=== PATIENT | female | born 1980 | race Caucasian/White ===

== ENCOUNTER 2017-02-06 18:36 | Observation (INO) | payer MEDICAID ==
[~2017-02-06] VITALS: Ht 150 cm; Wt 69.9 kg
[2017-02-06] MEDS ORDERED: PREN-88 PO (18:50)
[2017-02-06] MEDS ORDERED: MAGN400C PO (18:50)
[2017-02-06] MEDS ORDERED: CHOL500010 PO (18:50)
== END 2017-02-06 20:20 | disposition home or self-care (01) ==
LOC: L&D 18:36
PROVIDERS: ADMIT Obstetrics & Gynecology; ATTEND Obstetrics & Gynecology
DX: O24.419 Gestational diabetes mellitus in pregnancy, unspecified control (principal); Z3A.34 34 weeks gestation of pregnancy
CPT/HCPCS: 59025; 76815; 76818; G0378

== ENCOUNTER 2021-03-10 12:46 | Emergency (ER) | payer MEDICAID ==
[~2021-03-10] VITALS: Ht 154.9 cm; Wt 73.0 kg
[~2021-03-10 12:46] MED LIST: CHOL500010 PO; MAGN400C PO; PREN-88 PO
[2021-03-10] MEDS ORDERED: ONDANSETRON 4MG ODT PO STA (15:43)
[2021-03-10] MEDS ORDERED: IBUPROFEN 600MG TABLET PO STA (15:43)
[2021-03-10 15:51] LABS: EOSINOPHILS % 1.6 % (0.0-5.0); HEMATOCRIT. 37.3 % (36.0-48.0); HEMOGLOBIN. 12.9 g/dL (12.0-16.0); LYMPHOCYTES % 34.9 % (20.0-50.0); MEAN CORPUSCULAR HEMOGLOBIN 31.2 pg (28.0-32.0); MEAN CORPUSCULAR VOLUME 89.8 fL (81.0-99.0); MEAN PLATELET VOLUME 7.8 fl (7.4-10.4); NEUTROPHILS % 57.5 % (40.0-76.0); PLATELET 350 x1000/uL (130-400); RED BLOOD CELL COUNT 4.15 mill/uL (4.2-5.4); RED CELL DISTRIBUTION WIDTH 14.8 % (11.6-14.6)
[2021-03-10 15:58] LABS: CHLORIDE 111 mEq/L (98-107)
[2021-03-10 16:03] LABS: ETHANOL BLOOD < 10 mg/dL
[2021-03-10 16:20] LABS: CLARITY URINE CLEAR (CLEAR); COLOR URINE YELLOW (YELLOW); KETONES URINE NEGATIVE (NEGATIVE); LEUKOCYTE ESTERASE URINE NEGATIVE (NEGATIVE); NITRITE URINE NEGATIVE (NEGATIVE); OCCULT BLOOD URINE NEGATIVE (NEGATIVE); PH URINE 6.5 (4.5-8.0); PROTEIN URINE NEGATIVE (NEGATIVE); SPECIFIC GRAVITY URINE 1.005 (1.005-1.030); UROBILINOGEN URINE 0.2 E.U./dL (0.2-1.0)
[2021-03-10 16:29] LABS: *AMPHETAMINES SCREEN URINE NEGATIVE (NEGATIVE); *BARBITURATES SCREEN URINE NEGATIVE (NEGATIVE)
[2021-03-10 16:30] LABS: *BENZODIAZEPINES SCREEN URINE NEGATIVE (NEGATIVE); *COCAINE SCREEN URINE NEGATIVE (NEGATIVE); METHADONE URINE SCREEN NEGATIVE (NEGATIVE); OPIATES URINE SCREEN NEGATIVE (NEGATIVE); PHENCYCLIDINE URINE SCREEN NEGATIVE (NEGATIVE)
[2021-03-10 16:31] LABS: CANNABINOID URINE SCREEN NEGATIVE (NEGATIVE)
[2021-03-10] MEDS ORDERED: NAPR-681 PO (17:11)
[2021-03-10] MEDS ORDERED: ONDA4TAB5 PO (17:11)
[2021-03-10 17:23] VITALS: BP 131/76
== END 2021-03-10 17:24 | disposition home or self-care (01) ==
LOC: ER 12:46
DX: R51.9 Headache, unspecified (principal); R00.2 Palpitations
CPT/HCPCS: 36415; 80048; 80305; 80320; 81003; 81025; 85025; 93005; 99284; Q0162; G0480